=== PATIENT | female | born 1950 ===

== ENCOUNTER 2017-08-14 12:17 | Inpatient (IN) | payer OTHER ==
[~2017-08-14] VITALS: Ht 167.6 cm; Wt 89.8 kg
[~2017-08-14 12:17] MED LIST: DILTIAZEM ER60 MG PO; HYZAAR 100-121 UDTAB PO; METFORMIN HYDRO25 GM MC; OMEPRAZOLE10 MG PO; SINGULAIR4 MG PO; THEOPHYLLINE400 MG PO
[2017-08-24] MEDS ORDERED: HYZAAR 100-12.1 EACH PO (17:46)
[2017-08-24] MEDS ORDERED: CARDIZEM CD180 MG PO (17:46)
[2017-08-24] MEDS ORDERED: MONTELUKAST SOD10 MG PO (17:47)
[2017-08-24] MEDS ORDERED: PANTOPRAZOLE SO40 MG PO (17:47)
[2017-08-24] MEDS ORDERED: ASA-EC81 MG PO (17:50)
== END 2017-08-24 18:58 | disposition home or self-care (01) | DRG 194 ==
LOC: ER 12:17 → SEC-K 08-15 12:29 → MEDJ 08-15 12:29 → SEC-K 08-15 13:12 → MEDJ 08-18 08:33 → MEDI 08-18 08:33 → MEDJ 08-24 18:58
PROC: 3E0F7GC Introduction of Other Therapeutic Substance into Respiratory Tract, Via Natural or Artificial Opening (ICD-10-PCS; principal; 2017-08-15)
PROC: 4A033R1 Measurement of Arterial Saturation, Peripheral, Percutaneous Approach (ICD-10-PCS; 2017-08-15)
PROC: 8E0ZXY6 Isolation (ICD-10-PCS; 2017-08-15)
PROC: 02H633Z Insertion of Infusion Device into Right Atrium, Percutaneous Approach (ICD-10-PCS; 2017-08-17)
PROC: B246ZZZ Ultrasonography of Right and Left Heart (ICD-10-PCS; 2017-08-17)
PROC: 4A12X4Z Monitoring of Cardiac Electrical Activity, External Approach (ICD-10-PCS; 2017-08-18)
DX: J09.X1 Influenza due to identified novel influenza A virus with pneumonia (principal); J45.42 Moderate persistent asthma with status asthmaticus; J18.8 Other pneumonia, unspecified organism; I10 Essential (primary) hypertension; I48.0 Paroxysmal atrial fibrillation; R09.02 Hypoxemia

== ENCOUNTER 2018-03-07 07:14 | Outpatient (CLI) | payer OTHER ==
[~2018-03-07 07:14] MED LIST changes: +ASA-EC81 MG PO; +CARDIZEM CD180 MG PO; +HYZAAR 100-12.1 EACH PO; +MONTELUKAST SOD10 MG PO; +PANTOPRAZOLE SO40 MG PO
== END 2018-03-07 07:21 | disposition home or self-care (01) ==
LOC: SONOGRAMA 07:14
DX: M75.102 Unspecified rotator cuff tear or rupture of left shoulder, not specified as traumatic (principal)

== ENCOUNTER 2019-01-29 08:09 | Outpatient (CLI) | payer OTHER | END 2019-01-29 14:59 | disposition home or self-care (01) | LOC: SONOGRAMA 08:09 | DX: M17.11 Unilateral primary osteoarthritis, right knee (principal); M19.90 Unspecified osteoarthritis, unspecified site ==

== ENCOUNTER 2019-02-12 07:49 | Outpatient (CLI) | payer OTHER | END 2019-02-12 07:51 | disposition home or self-care (01) | LOC: SONOGRAMA 07:49 → MAMO-SONO 08:45 | DX: R31.29 Other microscopic hematuria (principal) ==

== ENCOUNTER 2019-04-18 10:15 | Emergency (ER) | payer OTHER ==
[~2019-04-18] VITALS: Ht 167.6 cm; Wt 95.3 kg
== END 2019-04-18 20:18 | disposition home or self-care (01) ==
LOC: ER 10:15 → CPU-OBS 10:17 → ER 20:18
DX: I49.3 Ventricular premature depolarization (principal); R07.89 Other chest pain; Z95.0 Presence of cardiac pacemaker